=== PATIENT | male | born 1990 ===

== ENCOUNTER 2017-02-15 17:03 | Emergency (ER) | payer BC, MEDICAID ==
[2017-02-15 17:16] VITALS: BP 145/99; PULSE 97; RESP 97; TEMP 98.5; O2SAT 100
--- NOTE | 2017-02-15 18:15 | ED PDOC ---
HPI: Back Time Seen by Provider: 02/15/17 17:52 Chief Complaint (Nursing): Back Pain Chief Complaint (Provider): back pain History Per: Patient History/Exam Limitations: no limitations Additional Complaint(s): 26yo M in ED for eval of acute atruamtic pain to right sided lower back after waking up this AM. admits to pain with range of motion, unrelieved with stretching, and motrin. denies: nausea vomiting dizziness dyrsuia hemautira change in BM Past Medical History Reviewed: Historical Data, Nursing Documentation, Vital Signs Vital Signs: Last Vital Signs Temp 98.5 F 02/15/17 17:12 Pulse 97 H 02/15/17 17:12 Resp 97 H 02/15/17 17:12 BP 145/99 H 02/15/17 17:12 Pulse Ox 100 02/15/17 17:12 - Medical History PMH: Asthma (as a child), Fractures - Family History Family History: States: No Known Family Hx - Home Medications Home Medications: Ambulatory Orders Medication Instructions Recorded Methylprednisolone [Medrol] 4 mg PO TITR #1 unit 10/10/16 traMADol [Ultram] 50 mg PO Q6H PRN #15 tab 10/10/16 Cyclobenzaprine [Cyclobenzaprine 10 mg PO BID #14 tab 02/15/17 HCl] Naproxen [Naprosyn] 500 mg PO BID #30 tablet 02/15/17 - Allergies Allergies/Adverse Reactions: Allergies Allergy/AdvReac Type Severity Reaction Status Date / Time iodine Allergy RASH Verified 02/15/17 17:12 Review of Systems ROS Statement: Except As Marked, All Systems Reviewed And Found Negative Musculoskeletal: Positive for: Back Pain Physical Exam - Reviewed Nursing Documentation Reviewed: Yes Vital Signs Reviewed: Yes - Physical Exam Appears: Positive for: Well, Non-toxic, No Acute Distress Head Exam: Positive for: ATRAUMATIC, NORMAL INSPECTION, NORMOCEPHALIC Skin: Positive for: Normal Color, Warm, DRY Cardiovascular/Chest: Positive for: Regular Rate, Rhythm Respiratory: Positive for: CNT, Normal Breath Sounds Back: Positive for: Muscle Spasm (right sided spasm noted). Negative for: Vertebral Tenderness Extremity: Positive for: Normal ROM Neurologic/Psych: Positive for: Alert, Oriented - ECG O2 Sat by Pulse Oximetry: 100 Medical Decision Making Medical Decision Making: no indication for xray at this time most likely muscle spasm will get torodol im in Ed and .c on narpoxen and flexril advised to have pmd f.u and if needed PTx. Disposition - Clinical Impression Clinical Impression: Low back pain - Patient ED Disposition Is Patient to be Admitted: No Counseled Patient/Family Regarding: Diagnosis, Need For Followup, Rx Given - Disposition Referrals: [facility] [Outside] Disposition: Routine/Home Disposition Time: 18:17 Condition: STABLE Prescriptions: Cyclobenzaprine [Cyclobenzaprine HCl] 10 mg PO BID #14 tab Naproxen [Naprosyn] 500 mg PO BID #30 tablet Instructions: Muscle Strain (ED) Forms: [facility] ED School/Work Excuse
== END 2017-02-15 18:45 | disposition home or self-care (01) ==
LOC: H.ER 17:03
DX: M54.5 Low back pain (principal)

== ENCOUNTER 2017-09-26 22:19 | Emergency (ER) | payer MEDICAID ==
[2017-09-26 22:32] VITALS: BP 139/87; PULSE 77; RESP 18; TEMP 98.2; O2SAT 98
--- NOTE | 2017-09-26 23:40 | ED PDOC ---
Lower Extremity Pain/Injury Time Seen by Provider: 09/26/17 22:36 Chief Complaint (Nursing): Lower Extremity Problem/Injury History Per: Patient Onset/Duration Of Symptoms: Days (1) Additional Complaint(s): Patient reports developing pain to the L knee since this AM, reports that he has intermittent mild chronic pain. Otherwise: (-) "pop", (-) instability, (- ) other injury, (-) fever, (-) other joint pain. Has history of prior knee injury 2 years ago, he injured his ACL and meniscus and required surgery. Past Medical History Vital Signs: Last Vital Signs Temp 98.2 F 09/26/17 22:29 Pulse 77 09/26/17 22:29 Resp 18 09/26/17 22:29 BP 139/87 09/26/17 22:29 Pulse Ox 98 09/26/17 22:29 - Medical History PMH: Asthma (as a child), Fractures - Family History Family History: States: No Known Family Hx - Home Medications Home Medications: Ambulatory Orders Medication Instructions Recorded Methylprednisolone [Medrol] 4 mg PO TITR #1 unit 10/10/16 traMADol [Ultram] 50 mg PO Q6H PRN #15 tab 10/10/16 Cyclobenzaprine [Cyclobenzaprine 10 mg PO BID #14 tab 02/15/17 HCl] Naproxen [Naprosyn] 500 mg PO BID #30 tablet 02/15/17 Meloxicam [Mobic] 15 mg PO DAILY #20 tab 09/26/17 traMADol [Ultram] 50 mg PO TID PRN #12 tab 09/26/17 - Allergies Allergies/Adverse Reactions: Allergies Allergy/AdvReac Type Severity Reaction Status Date / Time iodine Allergy RASH Verified 09/26/17 22:28 Review of Systems Constitutional: Negative for: Fever, Chills, Weakness Musculoskeletal: Positive for: Other (knee pain). Negative for: Neck Pain, Shoulder Pain, Back Pain Skin: Negative for: Rash, Lesions Physical Exam - Physical Exam Comments: GENERAL APPEARANCE: Patient is awake, alert, oriented x 3, in mild to moderate painful distress. SKIN: Warm, dry; (-) cyanosis. LOWER EXTREMITY: Mild tenderness of knee with no effusion. Able to extend actively to 0 degrees; (-) instability on valgus or varus stress. Drawer sign (-). (-) distal neurovascular deficit. 2 point discrimination. Hip, thigh, leg and ankle: (-) tenderness or limitation of motion. - ECG O2 Sat by Pulse Oximetry: 98 Medical Decision Making Medical Decision Making: XR L knee: no fracture, no dislocation, +screws noted to the distal femur, ? round density in the joint space, as read by PA Patient advised that official radiology read of XR is still pending and will call the patient if there is any discrepancy within 24 hours. Patient medicated with Toradol IM and tramadol by mouth. X-ray results reviewed and discussed with the patient in great detail. Patient advised that he will need to follow-up with his orthopedist for further evaluation. Andrea wrap applied to the left knee and patient instructed on crutch walking. Based on history, exam and diagnostic results plan will be for outpatient follow -up. Advised to follow up with his ortho or referral provided in 1-2 days without fail. Advised to take medication as prescribed. Return to the emergency room at any time for any new or worsening symptoms. Patient states he fully agrees with and understands discharge instructions. States that he agrees with the plan and disposition. Verbalized and repeated discharge instructions and plan. I have given the patient opportunity to ask any additional questions. Disposition - Clinical Impression Clinical Impression: Knee pain - Patient ED Disposition Is Patient to be Admitted: No Counseled Patient/Family Regarding: Studies Performed, Diagnosis, Need For Followup, Rx Given - Disposition Referrals: Aba Medina III, MD [Staff Provider] - Disposition: Routine/Home Disposition Time: 23:30 Condition: STABLE Additional Instructions: Thank you for letting us take care of you today. You were treated for L knee pain. The emergency medical care you received today was directed at your acute symptoms. If you were prescribed any medication, please fill it and take as directed. It may take several days for your symptoms to resolve. Return to the Emergency Department if your symptoms worsen, do not improve, or if you have any other problems. Please contact your doctor in 2 days for re-evaluation and follow up / or call one of the physicians/clinics you have been referred to that are listed on the Patient Visit Information form that is included in your discharge packet. Bring any paperwork you were given at discharge with you along with any medications you are taking to your follow up visit. Our treatment cannot replace ongoing medical care by a primary care provider (PCP) outside of the emergency department. Thank you for allowing the [facility] team to be part of your care today. If you had an X-Ray : A Radiologist will review the ED reading if any change in treatment is needed we will contact you. Prescriptions: Meloxicam [Mobic] 15 mg PO DAILY #20 tab traMADol [Ultram] 50 mg PO TID PRN #12 tab PRN Reason: Pain, Moderate (4-7) Instructions: Knee Pain (ED) Forms: [facility] (I[place]ic), [facility] ED School/Work Excuse - PA / SOAP MAKER / Resident Statement MD/DO has reviewed & agrees with the documentation as recorded.
--- NOTE | 2017-09-27 10:36 | RAD ---
PROCEDURE: Left Knee Radiographs. HISTORY: Pain. COMPARISON: None. FINDINGS: BONES: No acute fracture. JOINTS: Mild tricompartmental narrowing with minimal degenerative spurring. Prior ACL repair. JOINT EFFUSION: None. OTHER FINDINGS: None. IMPRESSION: No demonstrated acute fracture or dislocation. Prior ACL repair.
== END 2017-09-27 00:33 | disposition home or self-care (01) ==
LOC: H.ER 22:19
DX: M25.562 Pain in left knee (principal); J45.909 Unspecified asthma, uncomplicated
CPT/HCPCS: 73560; 96372; 99282; J1885